=== PATIENT | male | born 1940 | race Caucasian/White ===

== ENCOUNTER 2016-09-11 12:15 | Emergency (ER) | payer MEDICARE ==
--- NOTE | 2016-09-11 13:07 | UC ---
Respiratory Complaint HPI - HPI Summary HPI Summary: 76 year old male with complaints of chest congestion for 3-4 days. He started taking his brothers penicillin 1 - 2 times a day for 2 days but it is not helping is symptoms. Frequent harsh cough and he can hear wheezing. - History of Current Complaint Chief Complaint: UCRespiratory Stated Complaint: CONGESTION Time Seen by Provider: 09/11/16 13:03 Hx Obtained From: Patient Onset/Duration: Sudden Onset, Lasting Days - 4, Still Present Timing: Constant Severity Initially: Mild Severity Currently: Moderate Aggravating Factors: Exertion, Deep Breaths, Recumbent Position Associated Signs And Symptoms: Positive: Dyspnea, Wheezing, URI. Negative: Fever, Chills, Pleuritic Chest Pain, Hemoptysis, Dizziness, Calf Pain, Calf Swelling, Edema, Nasal Congestion, Hoarseness - Risk Factors Pulmonary Embolism Risk Factors: Negative Cardiac Risk Factors: Negative Pseudomonas Risk Factors: Negative Tuberculosis Risk Factors: Negative - Allergies/Home Medications Allergies/Adverse Reactions: Allergies Allergy/AdvReac Type Severity Reaction Status Date / Time Codeine Allergy See Comment Verified 09/11/16 12:49 Home Medications: Home Medications Isosorbide Dinitrate TAB* [Isordil TAB*] 10 mg PO TID 09/11/16 [History Confirmed 09/11/16] PMH/Surg Hx/FS Hx/Imm Hx Previously Healthy: Yes Endocrine History Of: Denies: Diabetes Cardiovascular History Of: Reports: Cardiac Disorders - irregular HR, Hypertension, Congestive Heart Failure - ON MEDICATION Respiratory History Of: Reports: Bronchitis - Surgical History Surgical History: Yes Surgery Procedure, Year, and Place: Hernia repair 3 months ago - Family History Known Family History: Positive: Hypertension Negative: Diabetes - Social History Occupation: Retired Lives: With Family Alcohol Use: Daily Alcohol Amount: wine Substance Use Type: None Smoking Status (MU): Former Smoker When Did the Patient Quit Smoking/Using Tobacco: 40 years ago - Immunization History Most Recent Influenza Vaccination: 2016 Review of Systems Constitutional: Fatigue Skin: Negative Eyes: Negative ENT: Nasal Discharge Respiratory: Cough Cardiovascular: Negative Gastrointestinal: Negative Genitourinary: Negative Motor: Negative Neurovascular: Negative Musculoskeletal: Negative Neurological: Negative Psychological: Negative All Other Systems Reviewed And Are Negative: Yes Physical Exam Triage Information Reviewed: Yes Appearance: No Pain Distress, Well-Nourished, Ill-Appearing - mildly Vital Signs: Initial Vital Signs Temp 98.5 F 09/11/16 12:53 Pulse 80 09/11/16 12:53 Resp 18 09/11/16 12:53 BP 156/76 09/11/16 12:53 Pulse Ox 96 09/11/16 12:53 Vital Signs Reviewed: Yes Eyes: Positive: Conjunctiva Clear. Negative: Discharge ENT: Positive: Hearing grossly normal. Negative: Nasal congestion Neck: Positive: Supple, Nontender, No Lymphadenopathy Respiratory: Positive: Decreased breath sounds, Rhonchi - right base, Wheezing - right base Cardiovascular: Positive: RRR, No Murmur Musculoskeletal: Positive: Strength Intact, ROM Intact, No Edema Neurological: Positive: Alert, Muscle Tone Normal Psychological: Positive: Age Appropriate Behavior - pleasant and cooperative Skin: Negative: rashes, breakdown UC Diagnostic Evaluation - Laboratory O2 Sat by Pulse Oximetry: 96 Respiratory Course/Dx - Course Course Of Treatment: Chest xray - Chronic interstial lung disease - Differential Dx/Diagnosis Differential Diagnosis/HQI/PQRI: Bronchitis, Lower Resp Infection Provider Diagnoses: Acute Bronchitis Discharge - Discharge Plan Condition: Stable Disposition: HOME Prescriptions: Albuterol HFA INHALER* [Ventolin HFA Inhaler*] 1 - 2 puff INH Q4H PRN #1 mdi PRN Reason: cough or wheezing Azithromycin TAB* [Zithromax TAB (Z-LYNETTE)*] 250 mg PO .Z-LYNETTE INSTRUCTIONS #6 tab predniSONE TAB* [Deltasone TAB*] 40 mg PO DAILY #10 tab Patient Education Materials: Acute Bronchitis (ED), Azithromycin (By mouth), Albuterol (By breathing), Prednisone (By mouth)
[2016-09-11 13:14] VITALS: BP 156/76
[2016-09-11] MEDS ORDERED: Albuterol/Ipratropium NEB.SOL* Albuterol 2.5 MG/Ipratropium 0.5 MG 3 ML INH ONE (13:16)
--- NOTE | 2016-09-11 13:41 | RAD ---
INDICATION: Cough x4-5 days COMPARISON: Chest x-ray August 07, 2014 TECHNIQUE: PA and lateral views of the chest were obtained. FINDINGS: The heart and mediastinum are normal in size and contour. Stable faint calcifications are noted at the aortic arch. There are right greater than left reticular nodular densities similar in appearance to the previous chest x-ray. There is no focal mass or suspicious nodule visible on chest x-ray. There is no evidence of large pleural effusion. Visualized bones are normal for the patient's age. There is no radiographic evidence of free air beneath the diaphragm IMPRESSION: FAINT RETICULONODULAR DENSITIES SIMILAR IN APPEARANCE TO THE AUGUST 07, 2014 CHEST X-RAY COULD BE SEEN IN THE SETTING OF CHRONIC INTERSTITIAL LUNG DISEASE. THERE IS NO RADIOGRAPHIC EVIDENCE OF ACUTE CARDIOPULMONARY ABNORMALITY.
== END 2016-09-11 14:01 | disposition home or self-care (01) ==
LOC: UCCORT 12:15
DX: J20.9 Acute bronchitis, unspecified (principal); J84.9 Interstitial pulmonary disease, unspecified; I10 Essential (primary) hypertension; I50.9 Heart failure, unspecified; I49.9 Cardiac arrhythmia, unspecified; Z88.5 Allergy status to narcotic agent
CPT/HCPCS: 71020; 94640; 99212; A9270-GY; G0463